=== PATIENT | female | born 1965 | race Caucasian/White ===

== ENCOUNTER → 2016-12-05 | Outpatient (CLI) | payer MEDICAID ==
[~2016-12-05] MED LIST: ADIPEX-P37.5 M2 PO; BACLOFEN 10MG T10 MG PO; CHANTIX1 TAB PO; GABAPENTIN300 MG PO; HCTZ/LISINOPRIL1 TAB PO; LEVOTHYROXIN0.075 M1 PO; LEVOTHYROXIN0.112 M1 PO; LIPITOR40 MG PO; OXYBUTYNIN5 MG PO; PAROXETINE HYDR10 MG PO; ROBAXIN-750750 MG PO; ULTRAM50 MG PO
[2016-12-05 14:20] LABS: BUN 12 mg/dL (7-18)
[2016-12-05 14:22] LABS: GFR (ESTIMATED) 76 ML/MIN (59-)
[2016-12-06 08:52] LABS: Vitamin D, 25-Hydroxy 40.2 ng/mL (30.0-100.0)
[2016-12-06 09:39] LABS: Folate (Folic Acid) 13.5 ng/mL (>3.0)
== END ==
LOC: LAB 13:31
PROVIDERS: Physician Assistant
DX: E55.9 Vitamin D deficiency, unspecified (principal); I10 Essential (primary) hypertension; G62.9 Polyneuropathy, unspecified; E03.9 Hypothyroidism, unspecified; E78.5 Hyperlipidemia, unspecified

== ENCOUNTER → 2017-06-19 | Outpatient (CLI) | payer MEDICAID ==
[~2017-06-19] MED LIST changes: +AMITRIPTYLINE 225 MG PO; +DICLOFENAC SODI75 M2 PO; +GABAPENTIN 400400 MG PO; +PREDNISONE 1MG.1 MG PO
[2017-06-19 16:44] LABS: LYMPH # 1.8 K/mm3 (0.7-4.5); LYMPH % 25.3 % (10-50.0)
[2017-06-19 16:51] LABS: HEMOGLOBIN 13.5 g/dL (12.2-16.2)
[2017-06-19 17:24] LABS: BUN 12 mg/dL (7-18)
[2017-06-19 17:28] LABS: GFR (ESTIMATED) 76 ML/MIN (59-)
[2017-06-21 08:42] LABS: Vitamin D, 25-Hydroxy 31.3 ng/mL (30.0-100.0)
[2017-06-21 10:39] LABS: Folate (Folic Acid) 16.8 ng/mL (>3.0)
== END ==
LOC: LAB 16:02
PROVIDERS: Physician Assistant
DX: R20.2 Paresthesia of skin (principal); Z79.899 Other long term (current) drug therapy; M51.36 Other intervertebral disc degeneration, lumbar region; I10 Essential (primary) hypertension; E78.5 Hyperlipidemia, unspecified

== ENCOUNTER 2017-07-17 14:52 | Day surgery (SDC) | payer MEDICAID ==
[~2017-07-17] VITALS: Ht 162.6 cm; Wt 129.3 kg
[2017-07-17 15:48] VITALS: BP 145/73
[2017-07-17 16:26] VITALS: BP 145/73
[2017-07-17 16:28] VITALS: BP 145/73
--- NOTE | 2017-07-17 16:30 | Procedure Note ---
Procedure detail Date of procedure: 07/17/17 Anesthesiologist: Paramjit Meyer Complications: None Pre-procedure diagnosis: RIGHT sacroiliitis Post-procedure diagnosis: Same Indications for procedure: Very pleasant 51-year-old white female that returns our pain clinic today for a repeat on the RIGHT SI joint injection. She's had significant success in terms of her pain in the RIGHT hip with previous SI joint injections. Procedure detail: Procedure: Right sacroliliac joint injection under fluoroscopy Informed consent was obtained and the risk and benefits of the procedure were explained to the patient.~ The patient was taken to the procedure room and noninvasive monitors were placed including noninvasive blood pressure cuff and pulse oximeter.~ The patient was placed prone on the procedure table.~ The~ right hip was cleansed using Betadine as a cleansing solution.~ C-arm fluorosocpy was used to view the right SI joint.~ The skin and subcutaneous tissues were anesthetized using Lidocaine 1.5% and a 25-gauge needle.~ After this, a 22-gauge spinal needle was inserted under fluoroscopic guidance into the inferior aspect of the right SI joint.~ Omnipaque dye was injected and a good spread was seen throughout the joint.~ After this, approximately 5 mL of bupivacaine 0.25% and Depo-Medrol 40 mg was incrementally injected into the sacroiliac joint.~ The patient tolerated the procedure well with no complications.~ The patient was observed in the Pain Clinic, then discharged home neurologically intact.~ Plan and disposition: Patient was reevaluated 10 minutes post procedure. She is doing very well. She reports improvement in the RIGHT hip pain. She'll return to see us for further evaluation. at 1630
[2017-07-17 16:32] VITALS: BP 135/59
== END 2017-07-17 16:33 | disposition home or self-care (01) ==
LOC: PM 14:52
PROC: 3E0U33Z Introduction of Anti-inflammatory into Joints, Percutaneous Approach (ICD-10-PCS; principal; 2017-07-17)
PROC: 3E0U3BZ Introduction of Anesthetic Agent into Joints, Percutaneous Approach (ICD-10-PCS; 2017-07-17)
DX: M46.1 Sacroiliitis, not elsewhere classified (principal)
CPT/HCPCS: G0260; J1040